=== PATIENT | female | born 1980 | race African-American/Black ===

== ENCOUNTER 2021-08-05 05:20 | Inpatient (IN) | payer OTHER ==
[2021-08-05] MEDS ORDERED: ELECTROLYTE-148 SOLN 500 ML IV ONE (06:02)
[2021-08-05] MEDS ORDERED: NIFEdipine 10 MG CAPSULE (FP) ONE (06:07)
[2021-08-05] MEDS ORDERED: DEXTROSE 5%-LACTATED RINGERS 1,000 ML IV SCH (06:15)
[2021-08-05 06:28] LABS: BASO % 0.8 % (0-2.0); HEMATOCRIT 36.8 % (32.4-45.2); LYMPH % 23.1 % (8-40); MCH 26.8 pg (25.7-33.7); MCHC 32.6 g/dl (32.0-36.0); MEAN CELL VOLUME 82.2 fl (80-96); MONO % 7.6 % (3.8-10.2); NEUT % 67.5 % (42.8-82.8); PLATELET COUNT 181 10^3/uL (134-434); RBC 4.49 M/mm3 (3.60-5.2); RDW 16.1 % (11.6-15.6); WHITE BLOOD COUNT 3.3 K/mm3 (4.0-10.0)
[2021-08-05] MEDS ORDERED: NIFEdipine 10 MG CAPSULE (FP) PO ONE (06:30)
[2021-08-05 06:43] VITALS: BMI 37.2
[2021-08-05 06:43] LABS: INR 0.89 (0.83-1.09); PROTHROMBIN TIME (PATIENT) 10.2 SEC (9.7-13.0)
[2021-08-05 06:46] LABS: ACTIVATED PTT 33.3 SECONDS (25.2-36.5)
[2021-08-05 06:47] LABS: RETICULOCYTES 1.22 % (0.5-1.5)
[2021-08-05 06:52] LABS: ALBUMIN 2.6 g/dl (3.4-5.0); BLOOD UREA NITROGEN 11.6 mg/dL (7-18); CALCIUM 8.4 mg/dL (8.5-10.1)
[2021-08-05 06:55] LABS: CREATININE 0.9 mg/dL (0.55-1.3); URIC ACID 6.8 mg/dL (2.6-7.2)
[2021-08-05 06:57] LABS: BILIRUBIN,TOTAL 0.6 mg/dL (0.2-1); TOT PROT 6.5 g/dl (6.4-8.2)
[2021-08-05] MEDS ORDERED: TERBUTALINE SULFATE 1 MG/1 ML VIAL SQ ONE ×2 (07:30→07:48)
[2021-08-05] MEDS ORDERED: morphine SULFATE/PF 1 MG/2 ML (2cc Syringe - QUVA) ONE (07:48)
[2021-08-05 09:52] LABS: CORD BASE EXCESS -4.9 mmol/L (0-2); CORD HCO3 25.1 mmHg (20-29); CORD PCO2 67.6 mmHg (30-78); CORD pH 7.188 (7.14-7.44)
[2021-08-05 09:55] LABS: CORD BASE EXCESS -5.5 mmol/L (0-2); CORD HCO3 21.1 mmHg (20-29); CORD PCO2 44.7 mmHg (30-78); CORD pH 7.291 (7.14-7.44)
[2021-08-05] MEDS ORDERED: DEXAMETHASONE SOD PHOSPHATE 4 MG/1 ML VIAL ONE (10:18)
[2021-08-05] MEDS ORDERED: CLINDAMYCIN PHOSPHATE 600 MG/4 ML VIAL ONE (10:18)
[2021-08-05] MEDS ORDERED: KETOROLAC TROMETHAMINE 30 MG/1 ML VIAL ONE (10:18)
[2021-08-05] MEDS ORDERED: OXYTOCIN 10 UNITS/ML VIAL ONE (10:18)
[2021-08-05] MEDS ORDERED: ONDANSETRON 4 MG/2 ML VIAL ONE (10:18)
[2021-08-05] MEDS ORDERED: ONDANSETRON 4 MG/2 ML VIAL IVPUSH PRN (10:36)
[2021-08-05] MEDS ORDERED: ACETAMINOPHEN 325 MG TABLET (FP) PO PRN (10:36)
[2021-08-05] MEDS ORDERED: morphine SULFATE/PF 1 MG/2 ML (2cc Syringe - QUVA) SPIN ONE (10:36)
[2021-08-05] MEDS ORDERED: OXYTOCIN 20 UNITS in 0.9% NS 20 UNIT/1,000 ML INFUS.BAG IV SCH (10:45)
[2021-08-05] MEDS: IBUPROFEN 600 MG TABLET (FP) PO PRN (14:38)
[2021-08-05] MEDS ORDERED: oxyCODONE HCL 5 MG TABLET PO PRN (22:41)
[2021-08-06] MEDS: IBUPROFEN 600 MG TABLET (FP) PO PRN ×3 (03:16→19:55)
[2021-08-06 08:46] LABS: BASO % 0.1 % (0-2.0); EOS % 0.1 % (0-4.5); HEMATOCRIT 30.2 % (32.4-45.2); HEMOGLOBIN 9.8 GM/dL (10.7-15.3); LYMPH % 8.2 % (8-40); MCH 26.8 pg (25.7-33.7); MCHC 32.6 g/dl (32.0-36.0); MEAN CELL VOLUME 82.3 fl (80-96); MEAN PLT VOLUME 9.8 fl (7.5-11.1); MONO % 6.1 % (3.8-10.2); NEUT % 85.5 % (42.8-82.8); PLATELET COUNT 262 10^3/uL (134-434); RBC 3.67 M/mm3 (3.60-5.2); RDW 15.7 % (11.6-15.6); WHITE BLOOD COUNT 6.2 K/mm3 (4.0-10.0)
[2021-08-06] MEDS: ACETAMINOPHEN 325 MG TABLET (FP) PO PRN (09:36)
[2021-08-06] MEDS: SIMETHICONE 80 MG TAB.CHEW (FP) PO PRN ×3 (09:37→19:56)
[2021-08-06] MEDS: FERROUS SO4 325 MG TABLET (FP) PO SCH ×2 (09:37→22:44)
[2021-08-06] MEDS: NIFEdipine E.R. 30 MG TABLET PO SCH (15:20)
[2021-08-07] MEDS: IBUPROFEN 600 MG TABLET (FP) PO PRN ×2 (05:09→21:03)
[2021-08-07] MEDS: FERROUS SO4 325 MG TABLET (FP) PO SCH ×2 (09:41→21:30)
[2021-08-07] MEDS: NIFEdipine E.R. 30 MG TABLET PO SCH (09:41)
[2021-08-07] MEDS: SIMETHICONE 80 MG TAB.CHEW (FP) PO PRN ×2 (09:41→20:57)
[2021-08-07] MEDS: ACETAMINOPHEN 325 MG TABLET (FP) PO PRN (09:41)
[2021-08-08] MEDS: SIMETHICONE 80 MG TAB.CHEW (FP) PO PRN (06:13)
[2021-08-08] MEDS: IBUPROFEN 600 MG TABLET (FP) PO PRN (06:13)
[2021-08-08 09:00] LABS: BASO % 0.2 % (0-2.0); EOS % 0.5 % (0-4.5); HEMATOCRIT 31.8 % (32.4-45.2); HEMOGLOBIN 10.3 GM/dL (10.7-15.3); LYMPH % 4.5 % (8-40); MCH 26.8 pg (25.7-33.7); MCHC 32.5 g/dl (32.0-36.0); MEAN CELL VOLUME 82.5 fl (80-96); MEAN PLT VOLUME 8.2 fl (7.5-11.1); MONO % 6.3 % (3.8-10.2); NEUT % 88.5 % (42.8-82.8); PLATELET COUNT 310 10^3/uL (134-434); RBC 3.86 M/mm3 (3.60-5.2); RDW 15.3 % (11.6-15.6); WHITE BLOOD COUNT 11.8 K/mm3 (4.0-10.0)
[2021-08-08] MEDS: FERROUS SO4 325 MG TABLET (FP) PO SCH (09:37)
[2021-08-08] MEDS: NIFEdipine E.R. 30 MG TABLET PO SCH (09:37)
[2021-08-08 12:39] VITALS: TEMP 97
[2021-08-08 12:53] VITALS: BP 154/97; PULSE 90
== END 2021-08-08 13:30 | disposition home or self-care (01) | DRG 540 ==
LOC: JLDR 05:20 → J3W 12:25
PROVIDERS: ADMIT Obstetrics & Gynecology Maternal & Fetal Medicine; ATTEND Obstetrics & Gynecology Maternal & Fetal Medicine
PROC: 10D00Z1 Extraction of Products of Conception, Low, Open Approach (ICD-10-PCS; principal; 2021-08-05)
PROC: 0UL70ZZ Occlusion of Bilateral Fallopian Tubes, Open Approach (ICD-10-PCS; 2021-08-05)
DX: O34.219 Maternal care for unspecified type scar from previous cesarean delivery (principal); O10.92 Unspecified pre-existing hypertension complicating childbirth; O99.214 Obesity complicating childbirth; E66.9 Obesity, unspecified; O77.0 Labor and delivery complicated by meconium in amniotic fluid; Z3A.38 38 weeks gestation of pregnancy; Z37.0 Single live birth
CPT/HCPCS: 36415; 36600; 80053; 82803; 82977; 83010; 84550; 85025; 85032; 85045; 85610; 85730; 86780; 86850; 86900; 86901; C9803; U0003; U0005